=== PATIENT | male | born 1930 | race Caucasian/White ===

== ENCOUNTER 2017-07-09 12:08 | Emergency (ER) | payer OTHER, MEDICARE, BC ==
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
[2017-07-09 11:38] LABS: CHLORIDE,CL 104 mmol/L (101-111); SODIUM,NA 140 mmol/L (135-145)
[~2017-07-09 12:08] MED LIST: Sodium Chloride 0.9% 10 ML Syringe FLUSH PRN
== END 2017-07-09 12:52 ==
LOC: DL.ED 12:08
DX: S06.6X0A Traumatic subarachnoid hemorrhage without loss of consciousness, initial encounter (principal); Z79.899 Other long term (current) drug therapy; V59.9XXA Occupant (driver) (passenger) of pick-up truck or van injured in unspecified traffic accident, initial encounter
CPT/HCPCS: 36415; 70450; 71010; 72125; 80053; 85025; 85610; 99285; J7050